=== PATIENT | male | born 1995 | race Asian ===

== ENCOUNTER 2024-03-08 16:30 | Emergency (ER) | payer OTHER ==
[~2024-03-08] VITALS: Ht 165.1 cm; Wt 75.0 kg
[2024-03-08 16:33] VITALS: TEMP 97.7
[2024-03-08 16:55] VITALS: BP 182/104; PULSE 114; RESP 14; O2SAT 97
[2024-03-08] MEDS: LIDOcaine 1% W/epiNEPHrine 1:100,000 20ml vial IJ ONE (17:33)
== END 2024-03-08 19:39 | disposition home or self-care (01) ==
LOC: ER 16:31
DX: S81.812A Laceration without foreign body, left lower leg, initial encounter (principal); W25.XXXA Contact with sharp glass, initial encounter; Y93.89 Activity, other specified; Y92.89 Other specified places as the place of occurrence of the external cause; Y99.8 Other external cause status
CPT/HCPCS: 12002; 73590; 99283; A6258; A6449

== ENCOUNTER 2024-03-16 14:26 | Emergency (ER) | payer BC ==
[~2024-03-16] VITALS: Ht 165.1 cm; Wt 73.8 kg
[2024-03-16 14:32] VITALS: BP 153/102; PULSE 103; RESP 18; O2SAT 100
[2024-03-16 17:08] VITALS: TEMP 99
== END 2024-03-16 17:10 | disposition home or self-care (01) ==
LOC: ER 14:26
DX: S81.812D Laceration without foreign body, left lower leg, subsequent encounter (principal); Z48.00 Encounter for change or removal of nonsurgical wound dressing; X58.XXXD Exposure to other specified factors, subsequent encounter
CPT/HCPCS: 99281; A6258; A6449

== ENCOUNTER 2024-03-18 20:12 | Emergency (ER) | payer BC ==
[~2024-03-18] VITALS: Ht 165.1 cm; Wt 73.6 kg
[2024-03-18 20:14] VITALS: PULSE 115
[2024-03-18 21:04] VITALS: BP 147/88; RESP 14; TEMP 97.8; O2SAT 98
== END 2024-03-18 21:09 | disposition home or self-care (01) ==
LOC: ER 20:12
DX: S81.812D Laceration without foreign body, left lower leg, subsequent encounter (principal); Z48.02 Encounter for removal of sutures; X58.XXXD Exposure to other specified factors, subsequent encounter
CPT/HCPCS: 99281